=== PATIENT | female | born 1950 | race Asian ===

== ENCOUNTER 2024-04-01 14:34 | Outpatient (RCR) | payer MEDICARE, BC, SELFPAY ==
--- NOTE | 2024-04-14 19:23 | CTCFLWUP_ITS ---
[address] [address] RE: LORRAINE WILDER.: 1950 AGE: 73 DATE OF CONSULTATION 04/01/2024 DIAGNOSIS: iron def anemia ?? REFERRING PHYSICIAN: MARÍA AGUIRRE PRIMARY PHYSICIAN : Justyna Tavarez REASON FOR CONSULTATION: Iron deficiency anemia HISTORY OF PRESENT ILLNESS: 73-year-old woman with a new diagnosis of iron deficiency. Patient have hemorrhoids but do not bleed. She had a colonoscopy 3 years ago and was negative except for hemorrho ids. She has no appetite changes or weight loss. She says she eats lots of junk and that is the reason she thinks that she is iron deficient. 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 No hematemesis or hematochez ia or hemoptysis. No history of gastric surgeries. Patient eats makes diet and have no restrictions on her diet. 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 GI: No nausea, vomiting, diarrhea or constipation. CVS: No palpitations or angina pains. Respiratory: No cough, chest pain or shortness of breath. VITAL SIGNS: Date Time PHYSICAL EXAMINATION: Conjunctivae is white Oral cavity is moist Chest is clear to auscultation. No wheezes or rales audible. CVS: Rhythm regular, no murmurs or gallops present. Abdomen is soft. No hepatosplenomegaly. Extremities: No pedal edema or cyanosis. LABORATORY DATA: Date Time ASSESSMENT: Iron deficiency anemia PLAN: ??Anemia resolved Ferritin normal Serum iron is low Status post infusion of iron 1 g LDH and haptoglobin wnl Advised to do colonoscopy as screening RTC in 4 months with labs ? ferritin, iron studies ,cbc, cmp cc: Zac Tavarez, Referring: MARÍA AGUIRRE Electronically signed by Dr Smith Patient: LORRAINE WILDER : 1950 MR#: [id number] Account: ?? FOLLOW UP NOTE Page 3 of 3
== END 2024-04-06 23:59 | disposition home or self-care (01) ==
LOC: SCTC 14:34
PROVIDERS: PCP Internal Medicine; Referring Provider Internal Medicine; Visit Provider Internal Medicine Hematology & Oncology
DX: D50.9 Iron deficiency anemia, unspecified (principal); K64.9 Unspecified hemorrhoids
CPT/HCPCS: 99212; G0463

== ENCOUNTER 2024-05-03 08:30 | Day surgery (SDC) | payer MEDICARE, BC, SELFPAY ==
[2024-05-03] VITALS (12 sets, daily range): BP systolic 115–136; BP diastolic 50–81; PULSE 68–76; RESP 13–27; TEMP 36.3–36.6; O2SAT 90–99; BMI 28.5
[2024-05-03] MEDS: ONDANSETRON INJ 2 MG/ML INJ 2 ML 4 MG IV (10:16)
[2024-05-03] MEDS: MIDAZOLAM INJ 1 MG/ML VIAL 2 ML (ASD USE ONLY) 2 MG IV (10:19)
[2024-05-03] MEDS: fentaNYL CIT INJ 50 mCg/ML AMP 2ML (ASD USE ONLY) IV (10:19)
[2024-05-03] MEDS: DiphenhydrAMINE INJ 50 MG/ML VIAL 25 MG IV (10:19)
--- NOTE | 2024-05-03 11:18 | SUR.PHASEII ---
1100: Pt received in recovery. Report from Britany JALLOH. Pt groggy. Is arousable with eye opening then drifts back to sleep. Resp even, unlabored. VS stable. No c/o pain, discomfort.
--- NOTE | 2024-05-03 12:16 | SUR.PHASEII ---
1135: Pt more awake, alert. Sitting up tolerating po fluids with no difficulty swallowing and no n/v. 1150: Pt fully awake, oriented x3. Pt was assisted to restroom. Ambulation steady. Pt and friend stated understanding of discharge instructions. Pt discharged from [facility] in stable condition.
== END 2024-05-03 11:50 | disposition home or self-care (01) ==
PROVIDERS: PCP Internal Medicine; Referring Provider Specialist; Visit Provider Specialist
PROC: 0DBE8ZX Excision of Large Intestine, Via Natural or Artificial Opening Endoscopic, Diagnostic (ICD-10-PCS; CPT 45380; principal; 2024-05-03 10:00)
PROC: (CPT 43239; 2024-05-03 10:00)
DX: D12.5 Benign neoplasm of sigmoid colon (principal); D50.9 Iron deficiency anemia, unspecified; K64.5 Perianal venous thrombosis; K64.4 Residual hemorrhoidal skin tags; K31.89 Other diseases of stomach and duodenum; K29.50 Unspecified chronic gastritis without bleeding; K31.7 Polyp of stomach and duodenum; K31.A0 Gastric intestinal metaplasia, unspecified; K62.1 Rectal polyp; K21.00 Gastro-esophageal reflux disease with esophagitis, without bleeding; K29.70 Gastritis, unspecified, without bleeding
CPT/HCPCS: 45385; 43251; 43239; A4649; J1200; J2250; J2405; J3010

== ENCOUNTER 2024-08-06 12:55 | Outpatient (RCR) | payer MEDICARE, BC, SELFPAY ==
--- NOTE | 2024-08-06 21:11 | CTCFLWUP_ITS ---
Patient: LORRAINE WILDER : 1950 Page 2 of 3 FOLLOW UP NOTE DATE OF SERVICE: 08/06/2024 NAME: LORRAINE WILDER ACCOUNT: [id number] : 1950 AGE: 73 INTERVAL HISTORY: Doing well since the last visit. No new complaints. Patient has completed her endoscopies HISTORY OF PRESENT ILLNESS: 73-year-old woman with a new diagnosis of iron deficiency. Patient have hemorrhoids but do not bleed. She had a colonoscopy 3 years ago and was negative except for hemorrhoids. She has no appetite changes or weight loss. She says she eats lots of junk and that is the reason she thinks that she is iron deficient. 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 No hematemesis or hematochezia or hemoptysis. No history of gastric surgeries. Patient eats makes diet and have no restrictions on her diet. 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 - No Gynecological Note - MAMMOGRAM 05/2023 MEDICATIONS: 1. amiodarone - 200 mg 1 tab Daily 2. amlodipine - 10 mg 1 tab Daily 3. atorvastatin - 20 mg 1 tab In the evening 4. Eliquis - 5 mg 1 tab Twice a Day 5. furosemide - 20 mg 1 tab Daily 6. Klor-Con M10 - 10 mEq 1 tab Daily Medications Last Reconciled by Marcia Ortiz MA on 08/06/2024 ALLERGIES: No Known Allergies REVIEW OF SYSTEMS: A complete 14-point review of systems was performed and is negative except as noted in interval history. PHYSICAL EXAMINATION: VITAL SIGNS: Temperature?98.2, B/P?119/70, Oxygen?Saturation?96% Weight?140?lbs PAIN: 0 - No pain ECOG Performance Status: 0 - Asymptomatic and fully active GENERAL APPEARANCE: Appears well, in no apparent distress, appropriately interactive. HEENT: Normocephalic, no temporal wasting, normal conjunctiva, no scleral icterus, normal hearing, lips without lesions, neck normal range of motion. CARDIOVASCULAR: Not assessed. PULMONARY: Normal respiratory effort, no respiratory distress or use of accessory muscles, speaking in full sentences, no tachypnea. EXTREMITIES: No pedal edema or cyanosis. SKIN: Normal skin appearance. NEUROLOGIC: Alert and oriented x4. PSHYCHIATRIC: Appropriate affect, mood normal, behavior normal, intact thought and speech. LABORATORY DATA: I have personally reviewed and interpreted each of Ms. Wilder?s relevant lab tests, abnormal findings are below: Date 07/31/2024 WBC 5.8 hemoglobin 14 platelets 302 kidney function normal AST ALT 33 and 29 bili is 0.4 total iron binding capacity 241 low iron level 86 iron saturation 36 ferritin 231 high ASSESSMENT/PLAN: Iron deficiency anemia--resolved Patient's hemoglobin is normal ferritin is normal LDH haptoglobin within normal limit Reviewed patient's colonoscopy report and is within normal limits RTC in 1 year Continue to follow-up with her primary care ORDERS: Order # Description [id number] Iron Panel + Ferritin + Vitamin B-12 + Folic Acid; Serum [id number] Follow Up 1 Year RETURN TO CLINIC: 1 year BILLING AND COMPLIANCE: I reviewed external records from providers outside my specialty as summarized above. I spent a total of 50 minutes on this patient?s care on the day of their visit excluding time spent related to any billed procedures. This time includes time spent with the patient as well as time spent documenting in the medical record, reviewing patients records and tests, obtaining history, placing orders, communicating with other healthcare professionals, counseling the patient, family or caregiver, and/or care coordination for the diagnoses above. Electronically Signed by: Uche Smith MD T: 9:09 PM CC: PCP: Johnny Castillo Referring: Johnny Castillo This document was completed utilizing speech recognition software. Grammatical errors, random word insertions, pronoun errors, and incomplete sentences are an occasional consequence of this system due to software limitations, ambient noise, and hardware issues. Any formal questions or concerns about the content, text or information contained within the body of this dictation should be directly addressed to the provider for clarification.
== END 2024-09-04 23:59 | disposition home or self-care (01) ==
LOC: SCTC 12:55
PROVIDERS: PCP Internal Medicine; Referring Provider Internal Medicine; Visit Provider Internal Medicine Hematology & Oncology
DX: Z09 Encounter for follow-up examination after completed treatment for conditions other than malignant neoplasm (principal); Z86.2 Personal history of diseases of the blood and blood-forming organs and certain disorders involving the immune mechanism
CPT/HCPCS: 99212; G0463